=== PATIENT | male | born 1950 | race Caucasian/White ===

== ENCOUNTER 2020-03-13 16:06 | Inpatient (IN) | payer OTHER ==
--- NOTE | 2020-03-13 19:09 | BHS.RME ---
Substance Use & Tx History - Substance Use History Heroin Substance amount: 8-10 bags Frequency of use: Daily Substance route: Inhalation (ex: sniffing or snorting) Cocaine-Crack Frequency of use: Daily - Last Treatment Date of last treatment: 3 years ago Treatment type: Medical Physical/Psych/Mental Status - Behavior General Behavior: Increased activity (restlessness, agitation) Eye Contact: Normal - Cooperativeness Cooperativeness: Cooperative - Thinking Thought Processes: Logical - Physical Health Problems Is patient presently having any pain?: No Does patient presently have any injuries (include location): No Does patient currently have a fever: No COWS - Scale Resting Pulse: 1= [place] 81-100 Sweatin= Chills/Flushing Restless Observation: 1= Difficult to Sit Still Pupil Size: 0= Normal to Room Light Bone or Joint Aches: 0= None Runny Nose/ Eye Tearin= Nasal Congestion GI Upset > 30mins: 2= Nausea/Diarrhea Tremor Observation: 0= None Yawning Observation: 0= None Anxiety or Irritability: 2=Irritable/Anxious Goose Flesh Skin: 0=Smooth Skin COWS Score: 8
--- NOTE | 2020-03-13 19:14 | HP ---
"COWS - Scale Resting Pulse: 1= [place] 81-100 Sweatin= Chills/Flushing Restless Observation: 1= Difficult to Sit Still Pupil Size: 0= Normal to Room Light Bone or Joint Aches: 0= None Runny Nose/ Eye Tearin= Nasal Congestion GI Upset > 30mins: 2= Nausea/Diarrhea Tremor Observation: 0= None Yawning Observation: 0= None Anxiety or Irritability: 2=Irritable/Anxious Goose Flesh Skin: 0=Smooth Skin COWS Score: 8 CIWA Score - Admission Criteria OASAS Guidelines: Admission for Medically Managed Detox: Requires at least one of the followin. CIWA greater than 12 2. Seizures within the past 24 hours 3. Delirium tremens within the past 24 hours 4. Hallucinations within the past 24 hours 5. Acute intervention needed for co occurring medical disorder 6. Acute intervention needed for co occurring psychiatric disorder 7. Severe withdrawal that cannot be handled at a lower level of care (continued vomiting, continued diarrhea, abnormal vital signs) requiring intravenous medication and/or fluids 8. Admission ROS [facility] Allergies/Adverse Reactions: Allergies Allergy/AdvReac Type Severity Reaction Status Date / Time No Known Allergies Allergy Verified 03/13/20 19:06 History of Present Illness: 70 y.o. male w/ opioid use 8 bags/ day , started use 5-6 years ago after work injury with rx for Percocet , switched to heroin 3 years ago . Latest use 6 am today , denies OD , denies IV use . 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 PMHX : htn not on meds cannot afford meds does not know name , latest taken > 1 yr ago pshx : hernia left, right ankle ORIF w/ hardware in place s/p trip and fall in building 15 yrs ago psych denies This report was requested by: Dominique Watson | Reference #: [id number] Others' Prescriptions Patient Name: Tom Dejesus Date: 1950 Address: [address] [place] [address] Sex: Male Rx Written Rx Dispensed Drug Quantity Days Supply Prescriber Name Payment Method Dispenser 12/30/2019 01/01/2020 oxycodone-acetaminophen 10-325 mg tab 60 30 Liza [facility] #[id number] 12/02/2019 12/02/2019 oxycodone-acetaminophen 10-325 mg tab 60 30 Terri, Liza AGUILAR [facility] #[id number] Patient Name: Tom Dejesus Date: 1950 Address: [address] [place] [address] Sex: Male Rx Written Rx Dispensed Drug Quantity Days Supply Prescriber Name Payment Method Dispenser 08/05/2019 08/05/2019 oxycodone-acetaminophen 10-325 mg tab 60 30 Terri, Liza AGUILAR Insurance [facility] #[id number] 07/01/2019 07/01/2019 oxycodone-acetaminophen 10-325 mg tab 60 30 Ter[id number] 05/27/2019 05/30/2019 oxycodone-acetaminophen 10-325 mg tab 60 30 Terri, Liza AGUILAR Insurance [facility] #[id number] 04/27/2019 05/01/2019 oxycodone-acetaminophen 10-325 mg tab 60 30 Terri, Liza AGUILAR Insurance [facility] #[id number] 04/01/2019 04/01/2019 oxycodone-acetaminophen 10-325 mg tab 60 30 Terri, Liza AGUILAR Insurance [facility] #[id number] Exam Limitations: Clinical Condition - Review of Systems Constitutional: Loss of Appetite EENT: reports: Nose Congestion Respiratory: reports: No Symptoms reported Cardiac: reports: No Symptoms Reported GI: reports: Nausea : reports: No Symptoms Reported Musculoskeletal: reports: Back Pain (chronic back pain) Integumentary: reports: No Symptoms Reported Neuro: reports: No Symptoms reported Endocrine: reports: No Symptoms Reported Hematology: reports: No Symptoms Reported Psychiatric: reports: Orientated x3, Agitated, Anxious Patient History - Smoking Cessation Smoking history: Current every day smoker Have you smoked in the past 12 months: Yes Hx Chewing Tobacco Use: No Initiated information on smoking cessation: Yes 'Breaking Loose' booklet given: 03/14/20 Admission Physical Exam S - Physical General Appearance: Yes: Moderate Distress, Irritable, Anxious HEENTM: Yes: EOMI, Hearing Decreased Respiratory: Yes: Chest Non-Tender, Normal Breath Sounds, No Respiratory Distress, No Accessory Muscle Use, Wheezing (bibasilar) Neck: Yes: No masses,lesions,Nodules, Trachea in good position Cardiology: Yes: Regular Rhythm, Regular Rate, S1, S2 Abdominal: Yes: Non Tender, Soft Back: Yes: Normal Inspection Musculoskeletal: Yes: Gait Steady Extremities: Yes: Non-Tender, Other (decreased extension right elbow, scar from remote injury) Neurological: Yes: Alert, Motor Strength 5/5, Normal Mood/Affect Integumentary: Yes: Warm, Other (excoriations left forearm reports was working w/ metal and got cut with a corner, reports most recent tetanus inj was 5-6 yrs ago , required for work) - Diagnostic (1) Opioid use disorder Current Visit: Yes Status: Chronic Inpatient Rehab Admission - Rehab Decision to Admit Inpatient rehab admission?: No"
[2020-03-13 19:22] VITALS: BMI 20.3
[2020-03-13] MEDS ORDERED: ACETAMINOPHEN 325 MG TABLET (FP) PO PRN ×2 (19:35)
[2020-03-13] MEDS ORDERED: MAG HYDROX/AL HYDROX/SIMETH 30 ML UNIT-DOSE CUP PO PRN (19:35)
[2020-03-13] MEDS ORDERED: MAGNESIUM CITRATE 300 ML BOTTLE PO PRN (19:35)
[2020-03-13] MEDS ORDERED: BISMUTH SUBSALICYLATE 524 MG/30 ML UD PO PRN (19:35)
[2020-03-13] MEDS ORDERED: MAGNESIUM HYDROX 2400MG/30ML ORAL SUSPENSION 30 ML CUP PO PRN (19:35)
[2020-03-13] MEDS ORDERED: ONDANSETRON *ODT* 4 MG TABLET SL PRN (19:35)
[2020-03-13] MEDS ORDERED: IBUPROFEN 400 MG TABLET (FP) PO PRN (19:35)
[2020-03-13] MEDS ORDERED: MENTHOL/PHENOL 1 EACH UD MM PRN (19:35)
[2020-03-13] MEDS ORDERED: hydrOXYzine PAMOATE 25 MG CAPSULE (FP) PO PRN (20:04)
[2020-03-13] MEDS ORDERED: METHADONE HCL 10 MG TABLET (FOR DETOX USE ONLY) PO ONE (20:30)
[2020-03-13] MEDS: ASPIRIN COATED 81 MG TABLET.EC PO SCH (20:45)
[2020-03-13] MEDS: cloNIDine HCL 0.1 MG TABLET PO PRN (21:03)
[2020-03-13] MEDS ORDERED: hydrOXYzine PAMOATE 25 MG CAPSULE (FP) PO SCH (22:00)
[2020-03-13] MEDS: MELATONIN 5 MG TABLETS PO SCH (22:30)
[2020-03-13] MEDS: THIAMINE HCL 100 MG TABLET (FP) PO SCH (22:30)
[2020-03-14] MEDS: cloNIDine HCL 0.1 MG TABLET PO PRN (05:40)
[2020-03-14] MEDS ORDERED: METHADONE HCL 10 MG TABLET (FOR DETOX USE ONLY) ONE (09:24)
[2020-03-14] MEDS ORDERED: METHADONE HCL 5 MG TABLET (FOR DETOX USE ONLY) ONE (09:24)
--- NOTE | 2020-03-14 09:47 | PN ---
S COWS - Scale Resting Pulse: 1= [place] 81-100 Sweatin= No chills or Flushing Restless Observation: 0= Sits Still Pupil Size: 1= Pupils >than Normal Bone or Joint Aches: 2= Severe Diffuse Aches Runny Nose/ Eye Tearin= Nasal Congestion GI Upset > 30mins: 2= Nausea/Diarrhea Tremor Observation of Outstretched Hands: 2= Slight Tremor Visible Yawning Observation: 1= 1-2x During Session Anxiety or Irritability: 2=Irritable/Anxious Goose Flesh Skin: 0=Smooth Skin COWS Score: 12 S Progress Note (SOAP) Subjective: alert,irritable,anxious,interrupted sleep,tremor,pain in the body and back,nausea Objective: 03/14/20 12:11 Vital Signs Temperature 99.5 F 03/14/20 09:06 Pulse Rate 88 03/14/20 09:06 Respiratory Rate 17 03/14/20 09:06 Blood Pressure 158/75 03/14/20 09:06 O2 Sat by Pulse Oximetry (%) 100 03/14/20 09:06 03/14/20 12:11 Laboratory Last Values WBC 8.6 K/mm3 (4.0-10.0) 03/14/20 07:00 RBC 4.14 M/mm3 (4.00-5.60) 03/14/20 07:00 Hgb 11.3 GM/dL (11.7-16.9) L 03/14/20 07:00 Hct 34.5 % (35.4-49) L 03/14/20 07:00 MCV 83.2 fl (80-96) 03/14/20 07:00 MCH 27.2 pg (25.7-33.7) 03/14/20 07:00 MCHC 32.7 g/dl (32.0-35.9) 03/14/20 07:00 RDW 16.1 % (11.9-15.9) H 03/14/20 07:00 Plt Count 262 K/MM3 (134-434) 03/14/20 07:00 MPV 6.8 fl (7.5-11.1) L 03/14/20 07:00 Sodium 140 mmol/L (136-145) 03/14/20 07:00 Potassium 4.1 mmol/L (3.5-5.1) 03/14/20 07:00 Chloride 103 mmol/L (98-107) 03/14/20 07:00 Carbon Dioxide 32 mmol/L (21-32) 03/14/20 07:00 Anion Gap 5 MMOL/L (8-16) L 03/14/20 07:00 BUN 18.2 mg/dL (7-18) H 03/14/20 07:00 Creatinine 0.7 mg/dL (0.55-1.3) 03/14/20 07:00 Est GFR (CKD-EPI)AfAm 112.38 03/14/20 07:00 Est GFR (CKD-EPI)NonAf 96.97 03/14/20 07:00 Random Glucose 92 mg/dL (74-106) 03/14/20 07:00 Calcium 8.6 mg/dL (8.5-10.1) 03/14/20 07:00 Total Bilirubin 0.2 mg/dL (0.2-1) 03/14/20 07:00 AST 16 U/L (15-37) 03/14/20 07:00 ALT 16 U/L (13-61) 03/14/20 07:00 Alkaline Phosphatase 60 U/L (45-117) 03/14/20 07:00 Total Protein 6.6 g/dl (6.4-8.2) 03/14/20 07:00 Albumin 2.9 g/dl (3.4-5.0) L 03/14/20 07:00 Syphilis Serology Non-reactive (NONREACTIVE) 03/13/20 07:00 Assessment: 03/14/20 12:12 withdrawal symptom Plan: continue detox methadone regimen,encourage oral fluid
--- NOTE | 2020-03-14 09:55 | EKG ---
Test Reason : Blood Pressure : / mmHG Vent. Rate : 084 BPM Atrial Rate : 084 BPM P-R Int : 142 ms QRS Dur : 082 ms QT Int : 370 ms P-R-T Axes : 078 -31 057 degrees QTc Int : 437 ms NORMAL SINUS RHYTHM LEFT AXIS DEVIATION ABNORMAL ECG NO PREVIOUS ECGS AVAILABLE Confirmed by Emmanuel Medina MD ([id number]) on 03/14/2020 9:54:28 AM Referred By: Confirmed By:Emmanuel Medina MD
[2020-03-14] MEDS ORDERED: METHADONE (DETOX) 20 MG, METHADONE (DETOX) 5 MG PO ONE (10:00)
[2020-03-14] MEDS: ASPIRIN COATED 81 MG TABLET.EC PO SCH (10:22)
[2020-03-14] MEDS: PRENATAL VITAMINS W/ FOLIC ACID TABLET (FP) PO SCH (10:22)
[2020-03-14] MEDS: NICOTINE 7 MG/24 HOURS TOPICAL PATCH TD SCH (10:22)
[2020-03-14 10:23] LABS: HEMATOCRIT 34.5 % (35.4-49); HEMOGLOBIN 11.3 GM/dL (11.7-16.9); MCH 27.2 pg (25.7-33.7); MCHC 32.7 g/dl (32.0-35.9); MEAN CELL VOLUME 83.2 fl (80-96); MEAN PLT VOLUME 6.8 fl (7.5-11.1); PLATELET COUNT 262 K/MM3 (134-434); RBC 4.14 M/mm3 (4.00-5.60); RDW 16.1 % (11.9-15.9); WHITE BLOOD COUNT 8.6 K/mm3 (4.0-10.0)
[2020-03-14 10:31] LABS: ALBUMIN 2.9 g/dl (3.4-5.0); BILIRUBIN,TOTAL 0.2 mg/dL (0.2-1); BLOOD UREA NITROGEN 18.2 mg/dL (7-18); CALCIUM 8.6 mg/dL (8.5-10.1); CREATININE 0.7 mg/dL (0.55-1.3); POTASSIUM 4.1 mmol/L (3.5-5.1); TOT PROT 6.6 g/dl (6.4-8.2)
[2020-03-14] MEDS: MELATONIN 5 MG TABLETS PO SCH (22:52)
[2020-03-14] MEDS: THIAMINE HCL 100 MG TABLET (FP) PO SCH (22:53)
[2020-03-15] MEDS ORDERED: METHADONE HCL 10 MG TABLET (FOR DETOX USE ONLY) PO ONE (10:00)
[2020-03-15] MEDS: ASPIRIN COATED 81 MG TABLET.EC PO SCH (10:22)
[2020-03-15] MEDS: PRENATAL VITAMINS W/ FOLIC ACID TABLET (FP) PO SCH (10:23)
[2020-03-15] MEDS: NICOTINE 7 MG/24 HOURS TOPICAL PATCH TD SCH (10:23)
[2020-03-15] MEDS: METHOCARBAMOL 500 MG TABLET PO PRN ×2 (11:00→19:09)
--- NOTE | 2020-03-15 11:06 | PN ---
BHS COWS - Scale Resting Pulse: 1= [place] 81-100 Sweatin= Chills/Flushing Restless Observation: 1= Difficult to Sit Still Pupil Size: 0= Normal to Room Light Bone or Joint Aches: 1= Mild Discomfort Runny Nose/ Eye Tearin= Runny Nose/Eyes GI Upset > 30mins: 0= None Tremor Observation of Outstretched Hands: 1= Tremor [place], Not Seen Yawning Observation: 1= 1-2x During Session Anxiety or Irritability: 2=Irritable/Anxious Goose Flesh Skin: 0=Smooth Skin COWS Score: 10 BHS Progress Note (SOAP) Subjective: sweats shakes restless anxiety body aches Objective: 03/15/20 11:04 Vital Signs Temperature 97.8 F 03/15/20 05:49 Pulse Rate 96 03/15/20 05:49 Respiratory Rate 18 03/15/20 05:49 Blood Pressure 147/82 03/15/20 05:49 O2 Sat by Pulse Oximetry (%) 100 03/15/20 05:49 Laboratory Tests 03/13/20 03/14/20 03/14/20 07:00 07:00 07:00 WBC 8.6 RBC 4.14 Hgb 11.3 L Hct 34.5 L MCV 83.2 MCH 27.2 MCHC 32.7 RDW 16.1 H Plt Count 262 MPV 6.8 L Sodium 140 Potassium 4.1 Chloride 103 Carbon Dioxide 32 Anion Gap 5 L BUN 18.2 H Creatinine 0.7 Est GFR (CKD-EPI)AfAm 112.38 Est GFR (CKD-EPI)NonAf 96.97 Random Glucose 92 Calcium 8.6 Total Bilirubin 0.2 AST 16 ALT 16 Alkaline Phosphatase 60 Total Protein 6.6 Albumin 2.9 L Syphilis Serology Non-reactive labs noted aaox3 ambulating no acute distress Assessment: 03/15/20 11:05 withdrawals Plan: continue detox increase fluids
[2020-03-15] MEDS: NICOTINE POLACRILEX 4 MG GUM BUC PRN ×2 (11:37→15:47)
[2020-03-15] MEDS: diazePAM 5 MG TABLET PO PRN ×2 (12:32→16:38)
[2020-03-15] MEDS: MELATONIN 5 MG TABLETS PO SCH (23:34)
[2020-03-15] MEDS: THIAMINE HCL 100 MG TABLET (FP) PO SCH (23:35)
[2020-03-16] MEDS: diazePAM 5 MG TABLET PO PRN ×4 (09:00→21:56)
[2020-03-16] MEDS: METHOCARBAMOL 500 MG TABLET PO PRN ×2 (09:01→21:57)
[2020-03-16] MEDS: NICOTINE POLACRILEX 4 MG GUM BUC PRN ×2 (09:02→17:16)
[2020-03-16] MEDS ORDERED: METHADONE HCL 5 MG TABLET (FOR DETOX USE ONLY) ONE (09:40)
[2020-03-16] MEDS ORDERED: METHADONE HCL 10 MG TABLET (FOR DETOX USE ONLY) ONE (09:41)
[2020-03-16] MEDS ORDERED: METHADONE (DETOX) 10 MG, METHADONE (DETOX) 5 MG PO ONE (10:00)
--- NOTE | 2020-03-16 10:23 | PN ---
BHS COWS - Scale Resting Pulse: 1= [place] 81-100 Sweatin= Chills/Flushing Restless Observation: 1= Difficult to Sit Still Pupil Size: 0= Normal to Room Light Bone or Joint Aches: 2= Severe Diffuse Aches Runny Nose/ Eye Tearin= Nasal Congestion GI Upset > 30mins: 0= None Tremor Observation of Outstretched Hands: 1= Tremor [place], Not Seen Yawning Observation: 1= 1-2x During Session Anxiety or Irritability: 2=Irritable/Anxious Goose Flesh Skin: 0=Smooth Skin COWS Score: 10 BHS Progress Note (SOAP) Subjective: sweats shakes restless body aches interrupted sleep anxiety Objective: 03/16/20 10:19 Vital Signs Temperature 97.5 F L 03/16/20 08:33 Pulse Rate 108 H 03/16/20 08:33 Respiratory Rate 18 03/16/20 08:33 Blood Pressure 150/92 03/16/20 08:33 O2 Sat by Pulse Oximetry (%) 96 03/16/20 08:33 Laboratory Tests 03/13/20 03/13/20 03/14/20 07:00 20:15 07:00 WBC 8.6 RBC 4.14 Hgb 11.3 L Hct 34.5 L MCV 83.2 MCH 27.2 MCHC 32.7 RDW 16.1 H Plt Count 262 MPV 6.8 L Sodium Potassium Chloride Carbon Dioxide Anion Gap BUN Creatinine Est GFR (CKD-EPI)AfAm Est GFR (CKD-EPI)NonAf Random Glucose Calcium Total Bilirubin AST ALT Alkaline Phosphatase Total Protein Albumin Syphilis Serology Non-reactive COVID-19 (ALDO) Not detected 03/14/20 07:00 WBC RBC Hgb Hct MCV MCH MCHC RDW Plt Count MPV Sodium 140 Potassium 4.1 Chloride 103 Carbon Dioxide 32 Anion Gap 5 L BUN 18.2 H Creatinine 0.7 Est GFR (CKD-EPI)AfAm 112.38 Est GFR (CKD-EPI)NonAf 96.97 Random Glucose 92 Calcium 8.6 Total Bilirubin 0.2 AST 16 ALT 16 Alkaline Phosphatase 60 Total Protein 6.6 Albumin 2.9 L Syphilis Serology COVID-19 (ALDO) aaox3 ambulating no acute distress Assessment: 03/16/20 10:21 withdrawal sx Plan: continue detox clonidine 0.1mg bid with parameters
[2020-03-16] MEDS: cloNIDine HCL 0.1 MG TABLET PO SCH ×2 (10:36→21:57)
[2020-03-16] MEDS: ASPIRIN COATED 81 MG TABLET.EC PO SCH (10:37)
[2020-03-16] MEDS: PRENATAL VITAMINS W/ FOLIC ACID TABLET (FP) PO SCH (10:38)
[2020-03-16] MEDS: NICOTINE 7 MG/24 HOURS TOPICAL PATCH TD SCH (10:38)
[2020-03-16] MEDS ORDERED: NITROGLYCERIN SUBLINGUAL 1/150 0.4 MG TAB SL ONE (11:54)
[2020-03-16] MEDS ORDERED: hydrOXYzine PAMOATE 50 MG CAPSULE (FP) PO PRN (12:02)
--- NOTE | 2020-03-16 13:27 | EKG ---
Test Reason : Blood Pressure : / mmHG Vent. Rate : 092 BPM Atrial Rate : 092 BPM P-R Int : 138 ms QRS Dur : 090 ms QT Int : 360 ms P-R-T Axes : 079 -19 061 degrees QTc Int : 445 ms NORMAL SINUS RHYTHM NORMAL ECG WHEN COMPARED WITH ECG OF 13-MAR-2020 18:42, NO SIGNIFICANT CHANGE WAS FOUND Confirmed by BROOKE ZAYAS MD ([id number]) on 03/16/2020 1:27:26 PM Referred By: Josesito DUNLAP Confirmed By:BROOKE ZAYAS MD
[2020-03-16] MEDS: THIAMINE HCL 100 MG TABLET (FP) PO SCH (21:56)
[2020-03-16] MEDS: MELATONIN 5 MG TABLETS PO SCH (22:39)
[2020-03-17] MEDS: diazePAM 5 MG TABLET PO PRN ×2 (05:15→10:33)
[2020-03-17 09:53] VITALS: BP 140/80; PULSE 114; TEMP 98.6
[2020-03-17] MEDS ORDERED: METHADONE HCL 10 MG TABLET (FOR DETOX USE ONLY) PO ONE (10:00)
[2020-03-17] MEDS: PRENATAL VITAMINS W/ FOLIC ACID TABLET (FP) PO SCH (10:21)
[2020-03-17] MEDS: ASPIRIN COATED 81 MG TABLET.EC PO SCH (10:21)
[2020-03-17] MEDS: cloNIDine HCL 0.1 MG TABLET PO SCH (10:21)
[2020-03-17] MEDS: NICOTINE 7 MG/24 HOURS TOPICAL PATCH TD SCH (10:22)
--- NOTE | 2020-03-17 11:43 | DS ---
[facility] Detox Discharge Summary Admission Date: 03/13/20 Discharge Date: 03/17/20 - History Present History: Opioid Dependence Additional Comments: alert,oriented x 3 ambulation on the unit lung clear on auscultation abdomen no pain,no tenderness no edema of legs no withdrawal symptom declined rehab stable for discharge total discharge time 325 minutes follow up with [facility] - Physical Exam Results Vital Signs: Vital Signs Temperature 98.6 F 03/17/20 08:57 Pulse Rate 114 H 03/17/20 08:57 Respiratory Rate 20 03/17/20 08:57 Blood Pressure 140/80 03/17/20 08:57 O2 Sat by Pulse Oximetry (%) 99 03/17/20 08:57 Pertinent Admission Physical Exam Findings: withdrawal sign and symptom Vital Signs Temperature 98.6 F 03/17/20 08:57 Pulse Rate 114 H 03/17/20 08:57 Respiratory Rate 20 03/17/20 08:57 Blood Pressure 140/80 03/17/20 08:57 O2 Sat by Pulse Oximetry (%) 99 03/17/20 08:57 Laboratory Last Values WBC 8.6 K/mm3 (4.0-10.0) 03/14/20 07:00 RBC 4.14 M/mm3 (4.00-5.60) 03/14/20 07:00 Hgb 11.3 GM/dL (11.7-16.9) L 03/14/20 07:00 Hct 34.5 % (35.4-49) L 03/14/20 07:00 MCV 83.2 fl (80-96) 03/14/20 07:00 MCH 27.2 pg (25.7-33.7) 03/14/20 07:00 MCHC 32.7 g/dl (32.0-35.9) 03/14/20 07:00 RDW 16.1 % (11.9-15.9) H 03/14/20 07:00 Plt Count 262 K/MM3 (134-434) 03/14/20 07:00 MPV 6.8 fl (7.5-11.1) L 03/14/20 07:00 Sodium 140 mmol/L (136-145) 03/14/20 07:00 Potassium 4.1 mmol/L (3.5-5.1) 03/14/20 07:00 Chloride 103 mmol/L (98-107) 03/14/20 07:00 Carbon Dioxide 32 mmol/L (21-32) 03/14/20 07:00 Anion Gap 5 MMOL/L (8-16) L 03/14/20 07:00 BUN 18.2 mg/dL (7-18) H 03/14/20 07:00 Creatinine 0.7 mg/dL (0.55-1.3) 03/14/20 07:00 Est GFR (CKD-EPI)AfAm 112.38 03/14/20 07:00 Est GFR (CKD-EPI)NonAf 96.97 03/14/20 07:00 Random Glucose 92 mg/dL (74-106) 03/14/20 07:00 Calcium 8.6 mg/dL (8.5-10.1) 03/14/20 07:00 Total Bilirubin 0.2 mg/dL (0.2-1) 03/14/20 07:00 AST 16 U/L (15-37) 03/14/20 07:00 ALT 16 U/L (13-61) 03/14/20 07:00 Alkaline Phosphatase 60 U/L (45-117) 03/14/20 07:00 Total Protein 6.6 g/dl (6.4-8.2) 03/14/20 07:00 Albumin 2.9 g/dl (3.4-5.0) L 03/14/20 07:00 Syphilis Serology Non-reactive (NONREACTIVE) 03/13/20 07:00 COVID-19 (ALDO) Not detected (Not Detected) 03/13/20 20:15 - Treatment Hospital Course: Detox Protocol Followed, Detoxed Safely, Responded well, Discharged Condition Good Patient has Accepted a Rehab Referral to: declined - Medication Discharge Medications: Ambulatory Orders NK [No Known Home Medication] 03/13/20 - Diagnosis (1) Opioid use disorder Current Visit: Yes Status: Chronic - AMA Did Patient Leave Against Medical Advice: No
--- NOTE | 2020-03-17 12:54 | PN ---
BHS COWS - Scale Resting Pulse: 2= [place] 101-120 Sweatin= No chills or Flushing Restless Observation: 0= Sits Still Pupil Size: 0= Normal to Room Light Bone or Joint Aches: 0= None Runny Nose/ Eye Tearin= None GI Upset > 30mins: 0= None Tremor Observation of Outstretched Hands: 0= None Yawning Observation: 0= None Anxiety or Irritability: 0= None Goose Flesh Skin: 0=Smooth Skin COWS Score: 2 S Progress Note (SOAP) Subjective: alert,no complaint Objective: 03/17/20 12:51 Vital Signs Temperature 98.6 F 03/17/20 08:57 Pulse Rate 114 H 03/17/20 08:57 Respiratory Rate 20 03/17/20 08:57 Blood Pressure 140/80 03/17/20 08:57 O2 Sat by Pulse Oximetry (%) 99 03/17/20 08:57 Assessment: 03/17/20 12:52 no withdrawal symptom Plan: stable for discharge today,patient denied rehab,follow up with [facility]
[2020-03-18] MEDS ORDERED: METHADONE HCL 5 MG TABLET (FOR DETOX USE ONLY) PO ONE (06:00)
== END 2020-03-17 10:45 | disposition home or self-care (01) | DRG 897 ==
LOC: YASAS 16:06 → Y6N 20:05
PROVIDERS: ADMIT Allergy & Immunology; ATTEND Allergy & Immunology
PROC: HZ2ZZZZ Detoxification Services for Substance Abuse Treatment (ICD-10-PCS; principal; 2020-03-13)
DX: F11.23 Opioid dependence with withdrawal (principal); F14.20 Cocaine dependence, uncomplicated; F17.210 Nicotine dependence, cigarettes, uncomplicated; I10 Essential (primary) hypertension; Z87.19 Personal history of other diseases of the digestive system; Z87.81 Personal history of (healed) traumatic fracture
CPT/HCPCS: 36415; 80053; 85027; 86780; 93005; 93010; C9803; J0735; U0003